=== PATIENT | male | born 1990 | race Caucasian/White ===

== ENCOUNTER 2022-06-12 07:12 | Outpatient (CLI) | payer BC, SELFPAY ==
--- NOTE | ~2022-06-12 | MR_ITS ---
EXAMINATION: MR brain/brain stem wo con DATE: 06/12/2022 08:27 INDICATION: Headache associated with sexual activity. TECHNIQUE: Magnetic resonance imaging (MRI) of the brain and brainstem was performed without intraven ous contrast. COMPARISON: None. FINDINGS: There is chronic encephalomalacia involving the anteroinferior frontal lobes. There is chromosomal disorders counselor marina encephalomalacia involving anterolateral right frontal lobe with old blood products. There is no intracranial hemorrhage, acute infarction, or abnormal intracranial mass lesion. The ventricles are n ormal in size. There is mild mucosal thickening in the paranasal sinuses. The mastoid air cells are n ormal. The orbits are normal. IMPRESSION: 1. Chronic encephalomalacia in the frontal lobes in a distribution typical of traumatic brain injury. Reviewed, dictated and finalized at location A. SCOPE REPAIRER IMPRESSION: 1. Chronic encephalomalacia in the frontal lobes in a distribution typical of t raumatic brain injury.
== END 2022-06-12 07:13 | disposition home or self-care (01) ==
LOC: ANHIMG 07:20
PROVIDERS: Visit Provider Registered Nurse
DX: G44.82 Headache associated with sexual activity (principal); G93.89 Other specified disorders of brain
CPT/HCPCS: 70551

== ENCOUNTER 2022-12-17 20:45 | Emergency (ER) | payer BC, SELFPAY ==
--- NOTE | ~2022-12-17 | XR_ITS ---
EXAMINATION: XR chest 1V portable Exam Date/Time: 12/17/2022 22:54 CDT HISTORY: dyspnea Comparison: 07/21/2017. RESULT: Lines, tubes, and devices: None. Lungs and pleura: Irregular, hazy focus of subsegmental airspace disease in the right lower lung. Bridget ngs otherwise clear. Cardiomediastinal silhouette: Stable. Other: No acute osseous or upper abdominal finding. IMPRESSION: Subsegmental right lower lung airspace disease, may represent infection in the appropriate clinical c ontext. Reviewed, dictated and finalized at location K. IMPRESSION: Subsegmental right lower lung airspace disease, may represent infection in the appropriate clinical context.
--- NOTE | 2022-12-17 20:48 | ECG_ITS ---
Measurements Intervals [place] Rate: 110 P: 66 TN: 138 QRS: 62 QRSD: 86 T: 35 QT: 287 QTc: 389 Interpretive Statements SINUS TACHYCARDIA NONSPECIFIC T-WAVE ABNORMALITY ABNORMAL ECG NO PREVIOUS ECG AVAILABLE FOR COMPARISON Electronically Signed On 12-18-2022 9:14:48 CDT by Ozzy Flores M.D.
[2022-12-17 20:53] VITALS: BP 128/86; PULSE 101; RESP 20; TEMP 36.9; O2SAT 99
[2022-12-17 22:37] VITALS: BP 126/88; PULSE 106; RESP 15; O2SAT 100
[2022-12-17] MEDS: SODIUM CHLORIDE 0.9% IV 1,000 ML 999 ML IV CONT (23:17)
[2022-12-17 23:25] LABS: Basophils Absolute Auto 0.1 K/mm3 (0.0-0.1); Basophils Percent Auto 0.8 % (0.2-1.2); Eosinophils Absolute Auto 0.2 K/mm3 (0-0.3); Eosinophils Percent Auto 1.1 % (0-4.4); Hematocrit 45.4 % (42.0-52.0); Hemoglobin 16.6 g/dL (14.0-18.0); Immature Granulocyte Absolute 0.07 K/mm3 (0.00-0.031); Immature Granulocyte Percent A 0.4 % (0-0.5); Lymphocytes Absolute Auto 3.85 K/mm3 (0.9-3.2); Lymphocytes Percent Auto 21.1 % (18.3-44.2); Mean Corpuscular HGB Conc 36.6 g/dl (32-36); Mean Corpuscular Hemoglobin 30.9 pg (26-34); Mean Corpuscular Volume 84.5 fl (80-100); Mean Platelet Volume 8.7 fl (7.4-10.4); Monocytes Absolute Auto 1.6 K/mm3 (0.1-0.6); Monocytes Percent Auto 8.5 % (2.6-8.5); Neutrophils Absolute Auto 12.4 K/mm3 (1.3-6.7); Neutrophils Percent Auto 68.1 % (45.5-73.1); Platelet Count Result 356 k/mm3 (150-375); Red Blood Count 5.37 M/mm3 (4.6-6.20); White Blood Count 18.2 K/mm3 (4.5-10.0)
[2022-12-17 23:27] LABS: Appearance Urine Clear (Clear); Bacteria Urine None Seen /hpf; Bilirubin Urine Negative (Negative); Blood Urine Negative (Negative); Color Urine Yellow (Yellow); Glucose Urine UA Negative (Negative); Ketones Urine Trace mg/dL (Negative); Leukocyte Esterase Ur Negative LEU/UL (Negative); Nitrate Urine Negative (Negative); Non Pathogenic Casts 0-2; Protein Urine Trace mg/dL (Negative); RBC Urine 0-2 /hpf (0-2); Specific Grav Ur 1.023 (1.001-1.035); Squamous Epithelial Cell Urine None seen /hpf (Few); WBC Urine 0-5 /hpf; pH Urine 6.5 (5.0-9.0)
[2022-12-17 23:34] LABS: Add Urine Microscopic? YES
[2022-12-17 23:38] LABS: Prothrombin Time 14.2 Seconds (11.1-14.7)
[2022-12-17 23:39] LABS: Alanine Aminotransferase 64 U/L (6-50); Albumin Level 4.8 g/dL (3.5-5.1); Alkaline Phosphatase 69 U/L (38-126); Anion Gap 10 mmol/L (8-16); Aspartate Amino Transferase 40 U/L (17-59); Bilirubin,Total 0.7 mg/dL (0.2-1.3); Blood Urea Nitrogen 20 mg/dL (9-20); Calcium 9.4 mg/dL (8.4-10.2); Carbon Dioxide 27 mmol/L (22-30); Chloride 103 mmol/L (98-107); Estimated CRCL calculation 94 ml/min; Estimated Glomerular Filt Rate > 60; Glucose 101 mg/dL (65-110); Lipase 51 U/L (23-300); Magnesium 1.9 mg/dL (1.6-2.3); Partial Thromboplastin Time 34.6 SECONDS (22.3-36.8); Sodium 140 mmol/L (137-145)
[2022-12-17 23:40] LABS: Lactic Acid Reflex 0.8 mmol/L (0.7-2.0)
[2022-12-17 23:49] VITALS: BP 130/86; PULSE 94; RESP 15; O2SAT 100
[2022-12-17 23:51] LABS: NT Pro B Type Natriuretic Pept < 20 pg/mL (19.9-100); Troponin I < 0.012 ng/mL (0.000-0.034)
--- NOTE | 2022-12-18 01:09 | ED.GENADULT ---
HPI - General Adult General Chief complaint: Shortness of Breath/Dyspnea Stated complaint: hx afib, high heartrate Time Seen by Provider: 12/17/22 22:01 History of Present Illness HPI narrative: Patient is a 32-year-old gentleman who presents emergency department with chief complaint of palpitations and feeling hot patient reports that symptoms started about 2 hours prior to arrival but have improved since he is arrived in the emergency department the patient reports he has had a history of A-fib before in the past and is on a DOAC currently. The patient reports that his heart rate has slowed down now and he feels as though he is in sinus rhythm now Related Data Allergies Allergy/AdvReac Type Severity Reaction Status Date / Time No Known Allergies Allergy Verified 12/17/22 23:18 Review of Systems Review of Systems: A 10 system review of systems was completed on the patient and is negative except for what is stated in the HPI. Nursing and ancillary documentation was reviewed. Exam Narrative: GENERAL: Well-appearing, well-nourished, and in no acute distress. HEAD: Normocephalic, atraumatic. EYES: PERRLA and EOMI. ENT: Nares clear, no rhinorrhea or epistaxis. Mucous membranes moist. NECK: Supple. CHEST: Clear to auscultation. No respiratory distress. HEART: Regular rate and rhythm. No murmur heard. Normal peripheral pulses. ABDOMEN: Soft, nontender, nondistended, normal active bowel sounds. EXTREMITIES: Normal range of motion. No edema. SKIN: Warm, dry, no rash. NEURO: No focal deficits. Alert and oriented x3. PSYCH: Normal mood and affect. Course Vital Signs Vital signs: Vital Signs Temperature 36.9 C 12/17/22 20:53 Pulse Rate 101 H 12/17/22 20:53 Respiratory Rate 20 12/17/22 20:53 Blood Pressure 128/86 12/17/22 20:53 Pulse Oximetry 99 12/17/22 20:53 Oxygen Delivery Room Air 12/17/22 20:53 Temperature 36.9 C 12/17/22 20:53 Pulse Rate 94 12/17/22 23:49 Respiratory Rate 15 12/17/22 23:49 Blood Pressure 130/86 12/17/22 23:49 Pulse Oximetry 100 12/17/22 23:49 Oxygen Delivery Room Air 12/17/22 20:53 Medical Decision Making MDM Narrative Medical decision making narrative: Differential diagnosis includes dysrhythmia, ACS, palpitations, electrolyte abnormality, infection Chest x-ray was interpreted by the radiologist as Subsegmental right lower lung airspace disease, may represent infection in the appropriate clinical context. Oratory studies were obtained which showed a white count of 18,000 troponin was negative BNP was negative magnesium was 1.9 potassium was 4.0 Given the patient's leukocytosis and findings for possible pneumonia and the patient has had a cough patient was started on doxycycline patient be discharged home to follow-up with his primary care provider Vital Signs Vital Signs: Vital Signs Temperature 36.9 C 12/17/22 20:53 Pulse Rate 101 H 12/17/22 20:53 Respiratory Rate 20 12/17/22 20:53 Blood Pressure 128/86 12/17/22 20:53 Pulse Oximetry 99 12/17/22 20:53 Oxygen Delivery Room Air 12/17/22 20:53 Temperature 36.9 C 12/17/22 20:53 Pulse Rate 94 12/17/22 23:49 Respiratory Rate 15 12/17/22 23:49 Blood Pressure 130/86 12/17/22 23:49 Pulse Oximetry 100 12/17/22 23:49 Oxygen Delivery Room Air 12/17/22 20:53 Lab Data 12/17/22 23:14 12/17/22 23:14 Labs: Lab Results 12/17/22 Range/Units 23:14 WBC 18.2 H (4.5-10.0) K/mm3 RBC 5.37 (4.6-6.20) M/mm3 Hgb 16.6 (14.0-18.0) g/dL Hct 45.4 (42.0-52.0) % MCV 84.5 (80-100) fl MCH 30.9 (26-34) pg MCHC 36.6 H (32-36) g/dl RDW 12.0 (11.5-14.5) % Plt Count 356 (150-375) k/mm3 MPV 8.7 (7.4-10.4) fl Immature Gran % (Auto) 0.4 (0-0.5) % Neut % (Auto) 68.1 (45.5-73.1) % Lymph % (Auto) 21.1 (18.3-44.2) % Catron % (Auto) 8.5 (2.6-8.5) % Eos % (Auto) 1.1 (0-4.4) % Baso % (Auto) 0.8
[2022-12-18] MEDS: DOXYCYCLINE HYCLATE 100 MG TABLET PO (01:52)
[2022-12-18 01:53] VITALS: BP 144/88; PULSE 90; RESP 15; O2SAT 100
== END 2022-12-18 01:54 | disposition home or self-care (01) ==
PROVIDERS: Emergency Provider Emergency Medicine; PCP Registered Nurse
DX: J18.9 Pneumonia, unspecified organism (principal); R00.2 Palpitations; D72.829 Elevated white blood cell count, unspecified
CPT/HCPCS: 36415; 71045; 80053; 81001; 83605; 83690; 83735; 83880; 84484; 85025; 85610; 85730; 93005; 96360; 96361; 99284; A9270; J7030

== ENCOUNTER 2025-03-01 17:51 | Emergency (ER) | payer OTHER, SELFPAY ==
--- NOTE | ~2025-03-01 | XR_ITS ---
EXAMINATION: XR chest 2V DATE: 03/01/2025 18:59 INDICATION: Shortness of breath. TECHNIQUE: PA and lateral views of the chest were obtained. COMPARISON: Chest radiograph dated 12/17/2022 FINDINGS: The lungs are well-expanded and clear with no focal airspace opacities, pulmonary edema, pleural effusion or pneumothorax. The cardiomediastinal silhouette is normal. Visualized bones and soft tissues are unremarkable. IMPRESSION: 1. No acute cardiopulmonary disease. Reviewed, dictated and finalized at location A.
--- OUTSIDE RECORDS SUMMARY | 2025-03-01 17:53 | XMS_ITS | Clinical Summary ---
Author Organization [facility] Address [address] [place] [address] Care Team Providers Care Plumbers And Top Helpers Name Role Phone Melani Henning EXPERIMENTAL MECHANIC ELECTRICAL-ANTHROPOLOGIST PHYSICAL Primary Care Provider Source Comments [facility],non-owned Affiliates and Associated Physician Practices is amultiple site organization consisting of ambulatory clinics and hospital sitesin [place], [place], [place] and [place]. This disclosure is being madepursuant to the Care Everywhere program and may not contain all information available regarding this patient. Last updated 18.[facility] Allergies No known active allergies Medications * Be aware that medications may not be up to date on this document. Always verify current medications with the patient. buPROPion XL 24hr (Wellbutrin-XL) 150 MG tablet 10/19/2022 Activ e fluticasone propionate (Flonase Allergy Relief) 50 MCG/ACT nasal spray [place] 2 (two) sprays into each nostril once daily 16 Each 11 10/26/2022 Active apixaban (Eliquis) 5 MG tablet TAKE 1 TABLET BY MOUTH TWICE DAILY 180 tablet 01/04/2024 Active Active Problems Problem Noted Date Diagnosed Date Primary hypertension 03/26/2022 Assessment & Plan (03/26/2022 12:11 PM CDT): BP above goal today. Patient would prefer to try lifestyle changes prior to starting medication. I recommend quitting chewing tobacco, increasing exercise activity, and avoiding caffeine. Atrial fibrillation 08/20/2019 Assessment & Plan (03/26/2022 12:07 PM CDT): Patient reports recurrent symptoms of palpitations and dyspnea that he associates with atrial fibrillation. Episodes self-terminate within minutes or hours. Patient would like to avoid taking medication if possible. EKG today shows sinus rhythm. Patient has a CHADSVASc score of 1 (hypertension). Stroke risk and anticoagulation were discussed with patient in detail. At this time, risk of bleeding on anticoagulation outweighs risk of stroke with no anticoagulation. - 30 day event monitor. - Recommend EP follow up pending monitor results to discuss ablation procedure vs antiarrhythmic medications. Assessment & Plan (01/14/2020 12:26 PM CDT): No symptomatic recurrence. Echo on 12/05/19 showed LVEF of 76%. Patient has a CHADSVASc score of 0-1 (possible HTN). Stroke risk and anticoagulation was discussed with patient in detail. At this time, risk of bleeding on anticoagulation outweighs risk of stroke with no anticoagulation. Research does not support the use of ASA for stroke prevention in atrial fibrillation patients. Patient has not been taking ASA. I have removed it from his medication list. Follow-up in one year or sooner if patient has recurrence of atrial fibrillation. Assessment & Plan (08/24/2019 9:41 AM BRANCH EXAMINER): Recent reoccurence following ER presentation, converted on his own prior to repeat DCCV, continue ASA daily. If pt does endorse reoccurrence, instructed to call office for event montior and low dose Metoprolol XL 25mg at night. Sleep study, follow up with Katherin in 3 months. Jaw pain 06/02/2014 Inadequate sleep hygiene Assessment & Plan (01/14/2020 12:23 PM CDT): Patient was previously referred to sleep medicine. He was seen by the LIQUOR STORE MANAGER in sleep medicine. He had normal PFTs on 12/05/19 and will be scheduled for a sleep study. I reinforced previous teaching that untreated sleep apnea can trigger atrial fibrillation episodes. SOB (shortness of breath) on exertion Assessment & Plan (03/26/2022 12:02 PM CDT): Associated with atrial fibrillation episodes. Resolved Problems Problem Noted Date Diagnosed Date Resolved Date Hematoma of neck 06/02/2014 10/09/2019 Leukocytosis 06/02/2014 10/09/2019 Mandible fracture 06/02/2014 10/09/2019 Immunizations Immunization Administration Dates Next Due DTaP VACCINE IM (6wk-6yrs) 02/09/1996,,1990,1990,08/05 HEP B VACCINE, ADULT 3 DOSE 04/06/1995, 5,08/19/1994 HIB-PRP-T 4 DOSE 10/05/1991,07/06/1991, 1 MMR 02/09/1996,10/05/1991 POLIO OPV 02/09/1996,01/11/1992,1990 ,1990 TD (AGE 7-ADULT) 12/03/2004 TDAP (7yrs+) 11/26/2013 Family History Medical History Relation Name Comments None Known Father unknown None Known Mother Bipolar Disorder Other uncle and his son Bipolar Disorder Sister Relation Name Status Comments Father unknown Alive Mother Alive Other uncle and his son Alive Sister Alive Social History Tobacco Use Types Packs/Day Years Used Date Smoking Tobacco: Former Cigarettes 0.5 13.4 2 12/2019 Smokeless Tobacco: Current Chew Tobacco Cessation:Ready to Q uit: Not Asked; Counseling Given: Not Answered Comments:cut back on chew 2017 Alcohol Use Standard Drinks/Week Comments Yes 0 (1 standard drink = 0.6 oz pure alcohol) couple times a year heavy drinker AUDIT-C Answer Date Recorded Frequency of Alcohol Consumption Monthly or less 10/09/2019 Average Number of Drinks 1 or 2 020 Frequency of Binge Drinking Less than monthly Overall Financial Resource Strain (CARDIA) Answe r Date Recorded Difficulty of Paying Living Expenses Not hard at all 10/09/2019 Hunger Vital Sign Answer Date Recorded Worried About Running Out of Food in the Last Ye ar Never true 10/09/2019 Ran Out of Food in the Last Year Never true 10/09/2019 PRAPARE - Transportation Answer Date Re corded Lack of Transportation (Medical) No 10/09/2019 Lack of Transportation (Non-Medical) No 10/09/2019 Education Answer Date Recorded What is the highest level of school you have completed or the highest degree you have received? High school graduate 10/09/2019 Sex and Gender Information Value Date Recorded Sex Assigned at Not on file Legal Sex Male 6:03 PM BRANCH EXAMINER Gender Identity Not on file Sexual Orientation Not on file Occupation Industry Job Start Date Job End Date former conconstruction now office-sales Not on file N ot on file Not on file Last Filed Vital Signs Vital Sign Reading Time Taken Comments Blood Pressure 130/74 03/08/2023 11:11 AM CDT Pulse 58 03/08/2023 11:11 AM CDT Temperature 37.1 C (98.7 F) 03/25/2022 3:56 PM CDT Respiratory Rate 16 08/20/2019 8:34 AM BRANCH EXAMINER Oxygen Saturation 98% 03/08/2023 11:11 AM CDT Inhaled Oxygen Concentration - - Weight 95.7 kg (211 lb) 03/08/2023 11:11 AM CDT Height 182.9 cm (6') 03/08/2023 11:11 AM CDT Body Mass Index 28.62 03/08/2023 11:11 AM CDT Plan of Treatment Health Maintenance Due Date Last Done Comments HEPATITIS C SCREENING 06/29/2008 HPV VACCINE (1 - 3-dose SCDM series) 2017 DTAP/TDAP/TD VACCINES (8 - Td or Tdap) 11/27/2023 11/26/2013, 12/03/2004, 02/09/1996, Additional history exists COVID-19 VACCINE ( season) 2024 DEPRESSION SCREENING 2024 INFLUENZA VACCINE (#1) 2025 05/19/2022 ZOSTER VACCINE (1 of 2) 2040 HIB VACCINE Completed 10/05/1991, 09/1991, 01/05/1991 HEPATITIS B VACCINE Completed 04/06/1995, 09/24/1994, 08/19/1994 HIV SCREENING Completed 08/20/2019 MENINGOCOCCAL (Group B) VACCINE SHARED DECISION-MAKING Aged Out No longer eligible based on patient's age to complete this topic MENINGOCOCCAL GROUPS A/C/Y/W VACCINE Aged Out No longer eligible based on patient's age to complete this topic PNEUMOCOCCAL VACCINE Aged Out No long er eligible based on patient's age to complete this topic Procedures Procedure Name Priority Date/Time Associated Diagnosis Comments HIV-1 HIV-2 ANTIGEN/ANTIBODY STAT 08/20/2019 12:16 AM BRANCH EXAMINER from Last 3 Months or Most Recently Relevant to Health Maintenance Results * HIV-1 HIV-2 ANTIGEN/ANTIBODY (08/20/2019 12:16 AM BRANCH EXAMINER) HIV Antigen/Antibod y 1 & 2 Non-reacti ve Non-react sammi 08/20/2019 1:49 AM BRANCH EXAMINER [facility] Comment:Neither HIV-1 p24 An tigen nor HIV-1/HIV-2 Antibodies are detected. Blood BLOOD SPECIMEN / Unknown Venipuncture / Unknown 08/20/2019 12:16 AM BRANCH EXAMINER 08/20/2019 12:21 AM BRANCH EXAMINER us Jennifer Contreras MD LAB - HEMATOLOGY ORDERABLES Fi nal Result [facility] [address] [phone] from Last 3 Months or Most Recently Relevant to Health Maintenance Insurance [facility] Care Teams Plumbers And Top Helpers Relationship Specialty Start Date End Date Melani Henning, EXPERIMENTAL MECHANIC ELECTRICAL-ANTHROPOLOGIST PHYSICAL [address] [place] [id number] PCP - General 10/26/22
--- OUTSIDE RECORDS SUMMARY | 2025-03-01 17:53 | XMS_ITS | Clinical Summary ---
Author Organization [facility] Address [address] [place] [address] Care Team Providers Care Saw Offbearer Name Role Phone Melani Henning Primary Care Provider [phone] Daniel Gonzalez MD Unavailable [phone] Allergies No known active allergies Medications indomethacin (INDOCIN) 25 MG capsule Take 1 capsule (25 mg total) by mouth 2 (two) times daily as needed. 05/21/20 23 Active ubrogepant (UBRELVY) 100 MG tabletIndication s:Migraine without aura, not intractable, without status migrainosus Take 1 tablet (100 mg total) by mouth 2 (two) times daily as needed. Max of 2 tablets (200 mg) in 24 hours 16 tablet 11 12/30/19 24 Active apixaban (ELIQUIS) 5 MG tabletIndication s:Paroxysmal atrial fibrillation (CMS/HCC HHS/HCC) Take 1 tablet (5 mg total) by mouth 2 (two) times daily. 180 tablet 1 04/11/20 24 Active topiramate (TOPAMAX) 25 MG tabletIndication s:Migraine without aura, not intractable, without status migrainosus Take 1 tablet (25 mg total) by mouth nightly at bedtime. 30 tablet 11 12/30/19 24 025 Discontinued Active Problems Problem Noted Date Diagnosed Date Vertigo 05/07/2023 Calcification of right carotid artery 01/13/2023 SOB (shortness of breath) on exertion 05/19/2022 Overview (05/19/2022): Last Assessment & Plan: Associated with atrial fibrillation episodes. Primary hypertension 03/26/2022 Overview (05/19/2022): Last Assessment & Plan: BP above goal today. Patient would prefer to try lifestyle changes prior to starting medication. I recommend quitting chewing tobacco, increasing exercise activity, and avoiding caffeine. Paroxysmal atrial fibrillation ([facility]/HCC [facility]/HCC) 08/25/2017 Overview (05/19/2022): Last Assessment & Plan: Patient reports recurrent symptoms of palpitations and [...] to discuss ablation procedure vs antiarrhythmic medications. Resolved Problems Problem Noted Date Diagnosed Date Resolved Date Jaw pain 06/02/2014 05/19/2022 Encounters Date Type Department Care Team Description 02/26/2025 12:15 PM CDT Office Visit [facility], [address] [address] Shwetha Gary APRN Chest Pain (Follow up); Atrial Fibrillation; Shortness Of Breath 02/26/2025 Travel 02/20/2025 Telephone [facility], [address] [address] Rosalba Sumner PA Concerns from Last 3 Months Immunizations Immunization Administration Dates Next Due Dtap (Acel-Immune) 02/09/1996, 2,1990,1990,1990 Fluzone 6 Months+ Quad (0.5 mL Prefilled Syringe) 05/19/2022 Hepatitis B (Generic: Adult) 04/06/1995,09/24/18 95,08/19/1994 Hib (Omni-Hib) 10/05/1991,07/06/1991,01/05/1991 MMR (MMRII) 02/09/1996,10/05/1991 Polio Opv (Generic) 02/09/1996, 2,1990,1990 Td (TDVAX) 12/03/2004 Tdap (Generic) 11/26/2013 Family History Medical History Relation Comments No Known Problems Daughter 1 No Known Problems Daughter 2 No Known Problems Mother Relation Status Comments Daughter 1 Alive Daughter 2 Alive Father Alive Maternal Grandfather Alive Maternal Grandmother Alive Mother Alive Sister Alive Social History Tobacco Use Types Packs/Day Years Used Date Smoking Tobacco: Former Cigarettes Q uit: 02/01/2022 Pipe Cigars Passive Smoke Exposure: Never Smokeless Tobacco: Former Tobacco Cessation:Counseling Given: No Comments:Quit in early 2021 Alcohol Use Standard Drinks/Week Comments Yes 0 (1 standard drink = 0.6 oz pur e alcohol) very rarely. once a month PHQ-2 Answer Date Recorded Patient Health Questionnaire-2 Score 0 12/30/2023 Sex and Gender Information Value Date Recorded Sex Assigned at Not on file Legal Sex Male 12:44 PM CDT Gender Identity Not on file Sexual Orientation Not on file Last Filed Vital Signs Vital Sign Reading Time Taken Comments Blood Pressure 124/78 02/26/2025 12:02 PM CDT Pulse 74 02/26/2025 12:02 PM CDT Temperature 36.3 C (97.4 F) 04/13/2024 7:59 AM CDT Respiratory Rate 16 06/15/2023 9:29 AM DELI SLICER Oxygen Saturation 98% 02/26/2025 12:02 PM CDT Inhaled Oxygen Concentration - - Weight 92.5 kg (204 lb) 02/26/2025 12:02 PM CDT Height 182.9 cm (6') 02/26/2025 12:02 PM CDT Body Mass Index 27.67 02/26/2025 12:02 PM CDT Plan of Treatment Upcoming Encounters Date Type Department Care Team (Late st Contact Info) Description 03/14/2025 11:[address] [facility] [address] [facility] [place] [address] Shwetha Gary, BAGGAGEMASTER [address] [facility], [facility] [address] [place] [address] 03/14/2025 12:45 PM CDT Appointment [facility] Nuclear Medicine [address] [facility] [place] [address] Shwetha Gary, BAGGAGEMASTER [address] [facility], [facility] [address] [place] [address] 03/14/2025 2:15 PM CDT Office Visit [facility], [facility] [address] [place] [address] Shwetha Gary, BAGGAGEMASTER [address] [facility], [facility] [address] [place] [address] Constantino Soares MD [facility] [address] [place] [address] 05/24/2025 11:45 AM DELI SLICER Office [facility], [facility] [address] [place] [address] Shwetha Gary, BAGGAGEMASTER [address] [facility], [facility] [address] [place] [address] Health Maintenance Due Date Last Done Comments Annual Physical 1993 HPV Vaccines (1 - 3-dose SCDM series) 2017 DTaP, Tdap and Td Vaccines (7 - Td or Tdap) 11/27/2023 11/26/2013, 12/03/2004, 02/09/1996, Additional history exists COVID-19 Vaccine ( season) 2024 PHQ-2 (Physician [place]) 2024 12/30/2023 Hepatitis B Vaccines Completed 04/06/1995, 09/24/1994, 08/19/1994 Hepatitis C Completed 05/21/2022 Meningococcal B Vaccine Aged Out No l onger eligible based on patient's age to complete this topic Meningococcal Vaccine Aged Out No saravanan katina eligible based on patient's age to complete this topic Pneumococcal Vaccine: Pediatrics (0 to 5 Years) and At-Risk Patients (6 to 49 Years) Aged Out No longer eligible based on patient's age to complete this topic RSV Immunizations Under 20 Months Aged Out No longer eligible based on patient's age to complete this topic Procedures Procedure Name Priority Date/Time Associated Diagnosis Comments ELECTROCARDIOGRAM (NON MIDMARK ACQUIRED) Routine 02/26/2025 12:09 PM CDT Paroxysmal atrial fibrillation (CMS/HCC HHS/HCC) technician terminal and repeater current use of anticoagulant therapy HEPATITIS C ANTIBODY W/RFX TO HCV RNA Routine 05/21/2022 9:18 AM DELI SLICER from Last 3 Months or Most Recently Relevant to Health Maintenance Results * ELECTROCARDIOGRAM (02/26/2025 12:09 PM CDT) 02/26/2025 12:0 9 PM CDT Narrative [facility] - 02/27/2025 5:53 AM CDT [facility] Test Date: 2025-02-26 Pat Name: ALICIA CAGLE Department: 112 Room: Gender: Male Supervisor [employer]: : 1990 Requested By: SHWETHA GARY Order Number: [id number] Reading MD: Alicia Jade Measurements Intervals Griffith Rate: 77 P: 67 MI: 135 QRS: 71 QRSD: 91 T: 34 QT: 368 QTc: 419 Interpretive Statements SINUS RHYTHM WITH SINUS ARRHYTHMIA NONSPECIFIC T-WAVE ABNORMALITY Procedure Note Alicia Jade MD - 02/27/2025 [facility] Test Date: 2025-02-26 Pat Name: ALICIA CAGLE Department: 112 Room: Gender: Male Supervisor [employer]: : 1990 Requested By: SHWETHA GARY Order Number: [id number] Reading MD: Alicia Jade Measurements Intervals Griffith Rate: 77 P: 67 MI: 135 QRS: 71 QRSD: 91 T: 34 QT: 368 QTc: 419 Interpretive Statements SINUS RHYTHM WITH SINUS ARRHYTHMIA NONSPECIFIC T-WAVE ABNORMALITY us Shwetha Gary BAGGAGEMASTER PROCEDURES-ORDERABLE NO C HARGE Final Result [facility] * HEPATITIS C ANTIBODY W/RFX TO HCV RNA (05/21/2022 9:18 AM DELI SLICER) HEPATITIS C AB NON-REACT JOANIE NON-REACT JOANIE [facility] SIGNAL TO CUTOFF 0.03 <1.00 [facility] Comment: HCV antibody was non-reactive. There is no laboratory evidence of HCV infection. In most cases, no further action is required. However, if recent HCV exposure is suspected, a test for HCV RNA (test code 90959) is suggested. For additional information please refer to http://education.THE Football App/faq/ZAE95q7 (This link is being provided for informational/ educational purposes only.) 05/21/2022 9:18 AM DELI SLICER 05/21/2022 9:22 AM DELI SLICER Narrative [facility] - 05/24/2022 4:48 PM DELI SLICER FASTING:NO FASTING: NO Resulting Agency Comment Performing Organization Information: Site ID: [place] Name: [facility] Address: [address] [place] [address] Director: Caleb Payne D.O., MPH us Melani [facility] Final Resul t [facility] [id number] [facility] [address], from Last 3 Months or Most Recently Relevant to Health Maintenance Insurance [employer] Care Teams Saw Offbearer Relationship Specialty Start Date End Date Melani Henning APNP [address] [place] [address] PCP - General NURSE PRACTITIONER 05/19/22 Daniel Gonzalez MD [address] [place] [id number] Physician NEUROMUSCULOSKELETAL MEDICINE 01/02/24
--- OUTSIDE RECORDS SUMMARY | 2025-03-01 17:53 | XMS_ITS | Encounter Summary ---
Author Organization [facility] Address [facility] [place] [address] Care Team Providers Care Rn Telephone Triage Name Role Phone Melani Henning Primary Care Provider [phone] Daniel Gonzalez MD Unavailable [phone] Encounter Details Date Type Department Care Team (Late st Contact Info) Description 10/07/2022 Localize Directt Message Enc [facility] Family & Internal Medicine [facility] [address] [place] [address] Melani Henning APNP [address] [place] [address] Question regarding MRI GENERIC Social History Tobacco Use Types Packs/Day Years Used Date Smoking Tobacco: Former Cigarettes Q uit: 02/01/2022 Pipe Cigars Smokeless Tobacco: Former Comments:Quit in early 2021 Alcohol Use Standard Drinks/Week Comments Yes 0 (1 standard drink = 0.6 oz pur e alcohol) very rarely. once a month PHQ-2 Answer Date Recorded Patient Health Questionnaire-2 Score 0 10/07/2022 Sex and Gender Information Value Date Recorded Sex Assigned at Not on file Legal Sex Male 12:44 PM CDT Gender Identity Not on file Sexual Orientation Not on file COVID-19 Exposure Response Date Recorded In the last 10 days, have yo u been in contact with someone who was confirmed or suspected to have Coronavirus/COVID-19? No / Unsure 10/07/2022 10:36 AM CDT documented as of this encounter Functional Status * Over the past 2 weeks, how often have you been bothered by any of the following problems? Question Answer Date of Assessment Author Status Little interest or pleasure in doing things Not at all 10/07/2022 11:13 AM CDT Savana King, RN Acti ve Feeling down, depressed, or hopeless Not at all 10/07/2022 11:13 AM CDT Savana King RN Active Patient Health Questionnaire-2 Score 0 10/07/2022 11:13 AM CDT Savana King R N Active documented as of this encounter Plan of Treatment Upcoming Encounters Date Type Department Care Team (Late st Contact Info) Description 03/14/2025 11:00 AM CDT Appointment [facility] Non Invasive Cardiology [facility] [place] [address] Keturah Gary, JERSEY KNITTER 3 [facility] [address] [place] [address] 03/14/2025 12:45 PM CDT Appointment [facility] Nuclear Medicine [facility] [place] [address] Keturah Gary, JERSEY KNITTER 3 [facility] [address] [place] [address] 03/14/2025 2:15 PM CDT [facility] [address] [place] [address] Keturah Gary, JERSEY KNITTER 3 [facility], [facility] [address] [place], [place] [address] Constantino Soares MD [facility], [address] [place] [address] 05/24/2025 11:45 AM ELECTRICIAN Office Visit [facility], [address] [address] Keturah Gary APRN [address] [address] documented as of this encounter Visit Diagnoses Not on filedocumented in this encounter Additional Health Concerns Assessment Noted Time PHQ-9 Depression Total Score: 7 05/19/20 22 9:22 AM ELECTRICIAN documented as of this encounter Care Teams Rn Telephone Triage Relationship Specialty Start Date End Date Melani Henning APNP [address] [place] [address] PCP - General NURSE PRACTITIONER 05/19/22 Daniel Gonzalez MD [address] [place] [address] Physician NEUROMUSCULOSKELETAL MEDICINE 01/02/24 documented as of this encounter
--- OUTSIDE RECORDS SUMMARY | 2025-03-01 17:53 | XMS_ITS | Encounter Summary ---
Author Organization [facility] Address [facility] [place] [address] Care Team Providers Care Office Asst Name Role Phone Melani Henning Primary Care Provider [phone] Daniel Gonzalez MD Unavailable [phone] Encounter Details Date Type Department Care Team (Late st Contact Info) Description 11/25/2022 MyChart Message Enc [facility] Family & Internal Medicine [facility] [address] [place] [address] Melani Henning APNP [address] [place], [place] [id number] Back pain Social History Tobacco Use Types Packs/Day Years [...] suspected to have Coronavirus/COVID-19? No / Unsure 11/12/2022 8:58 AM CDT documented as of this encounter Plan of Treatment Upcoming Encounters Date Type Department Care Team (Late Contact Info) Description 03/14/2025 11:00 AM CDT Appointment [facility] Non Invasive Cardiology [facility] [place] [address] Keturah Gary, SURVEY RESEARCH PROFESSOR 3 [facility] [address] [place] [address] 03/14/2025 12:45 PM CDT Appointment [facility] Nuclear Medicine [facility] [place] [address] Keturah Gary, SURVEY RESEARCH PROFESSOR 3 [facility], [facility] [address] [place], [place] [address] 03/14/2025 2:15 PM CDT Office Visit [facility], [facility] [address] [place] [address] Keturah Gary, SURVEY RESEARCH PROFESSOR 3 [facility], [facility] [address] [place], [place] [address] Constantino Soares MD [facility] [address] [place] [address] 05/24/2025 11:45 AM SHIPPING INSPECTOR Office [facility] [address] [place] [address] Keturah Gary, SURVEY RESEARCH PROFESSOR 3 [facility], [facility] [address] [place], [place] [address] documented as of this encounter Visit Diagnoses Not on filedocumented in this encounter Additional Health Concerns Assessment Noted Time PHQ-9 Depression Total Score: 7 05/19/20 22 9:22 AM SHIPPING INSPECTOR documented as of this encounter Care Teams Office Asst Relationship Specialty Start Date End Date Melani Henning APNP [address] [place] [address] PCP - General NURSE PRACTITIONER 05/19/22 Daniel Gonzalez MD [address] [place] [address] Physician NEUROMUSCULOSKELETAL MEDICINE 01/02/24 documented as of this encounter
[2025-03-01 18:29] VITALS: BP 136/97; PULSE 103; RESP 20; TEMP 36.7; O2SAT 99
--- NOTE | 2025-03-01 18:34 | ECG_ITS ---
Test Date: 2025-03-01 21:04:30 Measurements Intervals [place] Rate: 82 P: 65 UT: 137 QRS: 56 QRSD: 91 T: 28 QT: 340 QTc: 398 Interpretive Statements SINUS RHYTHM WITH MARKED SINUS ARRHYTHMIA NONSPECIFIC T-WAVE ABNORMALITY- INFERIOR LEADS BORDERLINE ECG No previous ECG available for comparison Electronically Signed On 03-02-2025 08:23:21 CDT by Orlando Spivey D.O.
[2025-03-01 21:31] LABS: Hematocrit 44.1 % (42.0-52.0); Hemoglobin 15.6 g/dL (14.0-18.0); Immature Granulocyte Percent A 0.3 % (0-0.5); Lymphocytes Absolute Auto 3.52 K/mm3 (0.9-3.2); Mean Corpuscular HGB Conc 35.4 g/dl (32-36); Mean Corpuscular Hemoglobin 29.9 pg (26-34); Mean Corpuscular Volume 84.5 fl (80-100); Nucleated Red Blood Cells Absolute Auto 0.000 K/mm3 (0.0-0.012); Nucleated Red Blood Cells Perc 0.0 % (0.0-0.2); Platelet Count Result 338 k/mm3 (150-375); Red Blood Count 5.22 M/mm3 (4.6-6.20); White Blood Count 14.1 K/mm3 (4.5-10.0)
[2025-03-01 21:41] LABS: Alanine Aminotransferase 59 U/L (6-50); Albumin Level 5.0 g/dL (3.5-5.1); Alkaline Phosphatase 62 U/L (38-126); Anion Gap 14 mmol/L (4-12); Aspartate Amino Transferase 45 U/L (17-59); Bilirubin,Total 0.6 mg/dL (0.2-1.3); Blood Urea Nitrogen 19 mg/dL (9-20); Calcium 9.7 mg/dL (8.4-10.2); Carbon Dioxide 22 mmol/L (22-30); Chloride 101 mmol/L (98-107); Estimated CRCL calculation 100 ml/min; Estimated Glomerular Filt Rate > 60; Glucose 148 mg/dL (65-110); Lipase 56 U/L (23-300); Potassium 3.7 mmol/L (3.4-5.0); Sodium 137 mmol/L (137-145); Total Protein 8.4 g/dL (6.3-8.2)
[2025-03-01 21:52] LABS: Troponin I < 0.012 ng/mL (0.000-0.034)
[2025-03-01 21:59] LABS: INR 1.0; Prothrombin Time 13.4 Seconds (11.1-14.7)
[2025-03-01 22:00] LABS: Partial Thromboplastin Time 32.1 Seconds (22.3-36.8)
[2025-03-01 22:34] VITALS: BP 137/84; PULSE 78; RESP 18; O2SAT 98
--- NOTE | 2025-03-01 23:02 | ECG_ITS ---
Test Date: 2025-03-01 23:03:20 Measurements Intervals [place] Rate: 83 P: 60 [place]: 143 QRS: 59 QRSD: 96 T: 35 QT: 355 QTc: 419 Interpretive Statements SINUS RHYTHM BASELINE ARTIFACT- I, II NORMAL ECG Compared to ECG 03/01/2025 21:04:30 Sinus arrhythmia no longer present Electronically Signed On 03-02-2025 08:17:50 CDT by Orlando Spivey D.O.
[2025-03-01 23:31] LABS: Magnesium 2.3 mg/dL (1.6-2.3)
[2025-03-01 23:43] LABS: Troponin I < 0.012 ng/mL (0.000-0.034)
--- OUTSIDE RECORDS SUMMARY | 2025-03-01 23:44 | XMS_ITS | Encounter Summary ---
Author Organization [facility] Address [facility] [place] [address] Care Team Providers Care Fitting Room Inspector Name Role Phone Melani Henning Primary Care Provider [phone] Daniel Gonzalez MD Unavailable [phone] Encounter Details Date Type Department Care Team (Late st Contact Info) Description 10/07/2022 Traffic Labst Message Enc [facility] Family & Internal Medicine [facility] [address] [place] [address] Melani Henning APNP [address] [place] [address] Question regarding MRI GENERIC Social [...] Not at all 10/07/2022 11:13 AM CDT Saavna King RN Active Patient Health Questionnaire-2 Score 0 10/07/2022 11:13 AM CDT Savana King R N Active documented as of this encounter Plan of Treatment Upcoming Encounters Date Type Department Care Team (Late st Contact Info) Description 03/14/2025 11:00 AM CDT Appointment [facility] Non Invasive Cardiology [facility] [place] [address] Keturah Gary, CLOTH PACKER 3 [facility], [facility] [address] [place] [address] 03/14/2025 12:45 PM CDT Appointment [facility] Nuclear Medicine [facility] [place] [address] Keturah Gary, CLOTH PACKER 3 [facility], [facility] [address] [place] [address] 03/14/2025 2:15 PM CDT [facility], [facility] [address] [place] [address] Keturah Gary, CLOTH PACKER 3 [facility], [facility] [address] [place], [place] [address] Constantino Soares MD [facility], [address] [place] [address] 05/24/2025 11:45 AM PARKING RAMP ATTENDANT Office Visit [facility], [address] [address] Keturah Gary APRN [address] [address] documented as of this encounter Visit Diagnoses Not on filedocumented in this encounter Additional Health Concerns Assessment Noted Time PHQ-9 Depression Total Score: 7 05/19/20 22 9:22 AM PARKING RAMP ATTENDANT documented as of this encounter Care Teams Fitting Room Inspector Relationship Specialty Start Date End Date Melani Henning APNP [address] [place] [address] PCP - General NURSE PRACTITIONER 05/19/22 Daniel Gonzalez MD [address] [place] [address] Physician NEUROMUSCULOSKELETAL MEDICINE 01/02/24 documented as of this encounter
--- OUTSIDE RECORDS SUMMARY | 2025-03-01 23:44 | XMS_ITS | Encounter Summary ---
Author Organization [facility] Address [facility] [place] [address] Care Team Providers Care Technology Consultant Name Role Phone Melani Henning Primary Care Provider [phone] Daniel Gonzalez MD Unavailable [phone] Encounter Details Date Type Department Care Team (Late st Contact Info) Description 11/25/2022 MyChart Message Enc [facility] Medical Group Family & Internal Medicine [facility] [address] [place] [address] Melani Henning APNP [address] [place], [place] [phone] Back pain Social History Tobacco Use Types [...] Info) Description 03/14/2025 11:00 AM CDT Appointment [facility] Non Invasive Cardiology [facility] [place] [address] Keturah Gary, MANAGER FOOD 3 [facility], [facility] [address] [place] [address] 03/14/2025 12:45 PM CDT Appointment [facility] Nuclear Medicine [facility] [place] [address] Keturah Gary, MANAGER FOOD 3 [facility], [facility] [address] [place], [place] [address] 03/14/2025 2:15 PM CDT Office Visit [facility], [facility] [address] [place] [address] Keturah Gary, MANAGER FOOD 3 [facility], [facility] [address] [place], [place] [address] Constantino Soares MD Three [facility]., [address] [place] [address] 05/24/2025 11:45 AM OPHTHALMIC LENS INSPECTOR Office Visit [facility], [facility] [address] [place] [address] Keturah Gary, MANAGER FOOD 3 [facility], [facility] [address] [place], [place] [address] documented as of this encounter Visit Diagnoses Not on filedocumented in this encounter Additional Health Concerns Assessment Noted Time PHQ-9 Depression Total Score: 7 05/19/20 22 9:22 AM OPHTHALMIC LENS INSPECTOR documented as of this encounter Care Teams Technology Consultant Relationship Specialty Start Date End Date Melani Henning APNP [address] [place] [address] PCP - General NURSE PRACTITIONER 05/19/22 Daniel Gonzalez MD [address] [place] [address] Physician NEUROMUSCULOSKELETAL MEDICINE 01/02/24 documented as of this encounter
--- OUTSIDE RECORDS SUMMARY | 2025-03-01 23:44 | XMS_ITS | Clinical Summary ---
Author Organization [facility] [address] Address [address] [place] [address] Care Team Providers Care Student Records Specialist Name Role Phone Daniel Gonzalez MD Primary Care Provider [phone] Allergies No known active allergies Medications aspirin 325 mg tablet Take 1 tablet (325 mg total) by mouth daily Active Active Problems Problem Noted Date Diagnosed Date Sensorineural hearing loss (SNHL) of both ears 1 07/07/2022 Vertigo 05/07/2023 Paroxysmal atrial fibrillation 08/25/2017 Medical History Medical History Date Comments Cardiac rhythm disturbance Family History Medical History Relation Name Comments No Known Problems Father No Known Problems Mother Hyperlipidemia Mother's Brother No Known Problems Sister Relation Name Status Comments Father Alive Mother Alive Mother's Brother Sister Alive Social History Tobacco Use Types Packs/Day Years Used Date Smoking Tobacco: Every Day Cigarettes 0.5 10 Smokeless Tobacco: Never Alcohol Use Standard Drinks/Week Comments No 0 (1 standard drink = 0.6 oz pur e alcohol) Personal Safety Answer Date Recorded Getting School Help Needed Not on file 06/30 Sex and Gender Information Value Date Recorded Sex Assigned at Not on file Legal Sex Male 2:00 PM DEVELOPMENTAL WRITING INSTRUCTOR Gender Identity Not on file Sexual Orientation Not on file Obstetrics History Last Filed Vital Signs Vital Sign Reading Time Taken Comments Blood Pressure 118/68 08/25/2017 8:02 AM DEVELOPMENTAL WRITING INSTRUCTOR Pulse 78 08/25/2017 8:02 AM DEVELOPMENTAL WRITING INSTRUCTOR Temperature - - Respiratory Rate - - Oxygen Saturation 97% 08/25/2017 8:02 AM DEVELOPMENTAL WRITING INSTRUCTOR Inhaled Oxygen Concentration - - Weight 96.6 kg (213 lb) 04/15/2023 1:53 PM CDT Height 182.9 cm (6') 08/25/2017 8:02 AM DEVELOPMENTAL WRITING INSTRUCTOR Body Mass Index 28.89 08/25/2017 8:02 AM DEVELOPMENTAL WRITING INSTRUCTOR Plan of Treatment Health Maintenance Due Date Last Done Comments Depression Screening 1990 Hepatitis C Screening 1990 Varicella Vaccines (1 of 2 - 13+ 2-dose series) 2003 Regular Well Visit/Exam 18-64 2008 Pneumococcal vaccine <65 (1 of 2 - PCV) 2009 HPV Vaccines (1 - 3-dose SCD M series) 2017 DTaP/Tdap/Td Vaccine (7 - Td or Tdap) 11/27/2023 11/26/2013, 12/03/2004, 02/09/1996, Additional history exists Influenza Vaccine (#1) 2025 05/19/2022 Hepatitis B Screening Completed 04/06/1995 , 09/24/1994, 08/19/1994 Insurance [facility] Address: [facility] [address] [place] [address] Care Teams Student Records Specialist Relationship Specialty Start Date End Date Daniel Gonzalez MD [address] [place], [place] [id number] PCP - General Neurology 12/06/22
--- OUTSIDE RECORDS SUMMARY | 2025-03-01 23:44 | XMS_ITS | Clinical Summary ---
Author Organization [facility] Address [address] [place] [address] Care Team Providers Care Business Division Chair Name Role Phone Melani Henning Primary Care Provider [phone] Daniel Gonzalez MD Unavailable [phone] Allergies No known active allergies Medications indomethacin [...] activity, and avoiding caffeine. Paroxysmal atrial fibrillation ([facility]/HCC [facility]/HCC) 08/25/2017 Overview (05/19/2022): Last Assessment & Plan: [...] 02/26/2025 12:15 PM CDT Office Visit [facility], [address] [address] Shwetha Gary APRN Chest Pain (Follow up); Atrial Fibrillation; Shortness Of Breath 02/26/2025 Travel 02/20/2025 Telephone [facility], [address] [address] Rosalba Sumner PA Concerns from Last 3 [...] CDT Respiratory Rate 16 06/15/2023 9:29 AM ORDER EDITOR Oxygen Saturation 98% 02/26/2025 12:02 PM CDT [...] [facility] Non Invasive Cardiology [address] [facility] [place] [address] Shwetha Gary, BASEBALL GLOVE STUFFER 3 [facility], [facility] [address] [place] [address] 03/14/2025 12:45 PM CDT Appointment [facility] Nuclear Medicine [facility] [place] [address] Shwetha Gary, BASEBALL GLOVE STUFFER 3 [facility], [facility] [address] [place] [address] 03/14/2025 2:15 PM CDT Office Visit [facility], [facility] [address] [place] [address] Shwetha Gary, BASEBALL GLOVE STUFFER 3 [facility], [facility] [address] [place] [address] Constantino Soares MD Three [facility] [address] [place] [address] 05/24/2025 11:45 AM ORDER EDITOR Office [facility], [facility] [address] [place] [address] Shwetha Gary, BASEBALL GLOVE STUFFER 3 [facility], [facility] [address] [place] [address] Health Maintenance Due Date Last Done Comments Annual Physical 1993 HPV Vaccines (1 - 3-dose SCDM series) 2017 DTaP, Tdap and Td Vaccines (7 - Td or Tdap) 11/27/2023 11/26/2013, 12/03/2004, 02/09/1996, Additional history exists COVID-19 Vaccine ( season) 2024 PHQ-2 (Physician Citizen [place]) 2024 12/30/2023 Hepatitis B Vaccines Completed 04/06/1995, [...] PM CDT Paroxysmal atrial fibrillation (CMS/HCC HHS/HCC) rodent exterminator current use of anticoagulant therapy HEPATITIS C ANTIBODY W/RFX TO HCV RNA Routine 05/21/2022 9:18 AM ORDER EDITOR from Last 3 Months or Most Recently Relevant to Health Maintenance Results * ELECTROCARDIOGRAM (02/26/2025 12:09 PM CDT) 02/26/2025 12:0 9 PM CDT Narrative [facility] - 02/27/2025 5:53 AM CDT [facility] Test Date: 2025-02-26 Pat Name: ALICIA CAGLE Department: 112 Room: Gender: Male Audit Spec: : 1990 Requested By: SHWETHA GARY Order Number: [id number] Reading MD: Alicia Jade Measurements Intervals [place] Rate: 77 P: 67 AK: 135 QRS: 71 QRSD: 91 T: 34 QT: 368 QTc: 419 Interpretive Statements SINUS RHYTHM WITH SINUS ARRHYTHMIA NONSPECIFIC T-WAVE ABNORMALITY Procedure Note Alicia Jade MD - 02/27/2025 [facility] Test Date: 2025-02-26 Pat Name: ALICIA CAGLE Department: 112 Room: Gender: Male Audit Spec: : 1990 Requested By: SHWETHA GARY Order Number: [id number] Reading MD: Alicia Jade Measurements Intervals [place] Rate: 77 P: 67 AK: 135 QRS: 71 QRSD: 91 T: 34 QT: 368 QTc: 419 Interpretive Statements SINUS RHYTHM WITH SINUS ARRHYTHMIA NONSPECIFIC T-WAVE ABNORMALITY us Shwetha Gary BASEBALL GLOVE STUFFER PROCEDURES-ORDERABLE NO C HARGE Final Result [facility] * HEPATITIS C ANTIBODY W/RFX TO HCV RNA (05/21/2022 9:18 AM ORDER EDITOR) HEPATITIS C AB NON-REACT JOANIE NON-REACT JOANIE [facility] SIGNAL TO CUTOFF 0.03 <1.00 [facility] Comment: HCV antibody was non-reactive. There is no laboratory evidence of HCV infection. In most cases, no further action is required. However, if recent HCV exposure is suspected, a test for HCV RNA (test code 29334) is suggested. For additional information please refer to http://education.V[employer]ogen/faq/GIS58m8 (This link is being provided for informational/ educational purposes only.) 05/21/2022 9:18 AM ORDER EDITOR 05/21/2022 9:22 AM ORDER EDITOR Narrative [facility] - 05/24/2022 4:48 PM ORDER EDITOR FASTING:NO FASTING: NO Resulting Agency Comment Performing Organization Information: Site ID: [place] Name: [facility] Address: [address] [place] [address] Director: Caleb Payne D.O., MPH us Melani [facility] Final Resul t [facility] [address] [place] [address], from Last 3 Months or Most Recently Relevant to Health Maintenance Insurance CIG Care Teams Business Division Chair Relationship Specialty Start Date End Date Melani Henning APNP [address] [place] [address] PCP - General NURSE PRACTITIONER 05/19/22 Daniel Gonzalez MD [address] [place] [address] Physician NEUROMUSCULOSKELETAL MEDICINE 01/02/24
--- OUTSIDE RECORDS SUMMARY | 2025-03-01 23:44 | XMS_ITS | Clinical Summary ---
Author Organization [facility] Address [address] [place] [address] Care Team Providers Care Manager Life Insurance Name Role Phone Melani Henning SERVICE MANAGER-MAINTENANCE ADVISOR Primary Care Provider Source Comments [facility],non-owned Affiliates and Associated Physician Practices is amultiple site organization consisting of ambulatory clinics and hospital sitesin [place], [place], [place] and [place]. This disclosure is being madepursuant to the Care Everywhere program and may not contain all information available regarding this patient. Last updated 18.[facility] Allergies No known active allergies Medications * Be aware that medications may not be up to date on this document. Always verify current medications with the patient. buPROPion XL 24hr (Wellbutrin-XL) 150 MG tablet 10/19/2022 Activ e fluticasone propionate (Flonase Allergy Relief) 50 MCG/ACT nasal spray [place] 2 (two) sprays into each nostril once [...] fibrillation. Assessment & Plan (08/24/2019 9:41 AM MILLWRIGHT APPRENTICE): Recent reoccurence following ER presentation, converted on [...] sleep medicine. He was seen by the [employer] in sleep medicine. He had normal PFTs [...] on file Legal Sex Male 6:03 PM MILLWRIGHT APPRENTICE Gender Identity Not on file Sexual Orientation [...] CDT Respiratory Rate 16 08/20/2019 8:34 AM MILLWRIGHT APPRENTICE Oxygen Saturation 98% 03/08/2023 11:11 AM CDT [...] HIV-1 HIV-2 ANTIGEN/ANTIBODY STAT 08/20/2019 12:16 AM MILLWRIGHT APPRENTICE from Last 3 Months or Most Recently Relevant to Health Maintenance Results * HIV-1 HIV-2 ANTIGEN/ANTIBODY (08/20/2019 12:16 AM MILLWRIGHT APPRENTICE) HIV Antigen/Antibod y 1 & 2 Non-reacti ve Non-react sammi 08/20/2019 1:49 AM MILLWRIGHT APPRENTICE [facility] Comment:Neither HIV-1 p24 An tigen nor HIV-1/HIV-2 Antibodies are detected. Blood BLOOD SPECIMEN / Unknown Venipuncture / Unknown 08/20/2019 12:16 AM MILLWRIGHT APPRENTICE 08/20/2019 12:21 AM MILLWRIGHT APPRENTICE us Jennifer Contreras MD LAB - HEMATOLOGY ORDERABLES Fi nal Result [facility] [address] [phone] from Last 3 Months or Most Recently Relevant to Health Maintenance Insurance [facility] Care Teams Manager Life Insurance Relationship Specialty Start Date End Date Melani Henning, SERVICE MANAGER-MAINTENANCE ADVISOR [address] [place] [address] PCP - General 10/26/22
--- NOTE | 2025-03-01 23:49 | ED.SOB ---
HPI - SOB/Dyspnea General Chief Complaint: Shortness of Breath/Dyspnea Stated Complaint: SOB Time Seen by Provider: 03/01/25 23:02 Source: patient Mode of arrival: ambulatory Limitations: no limitations History of Present Illness HPI Narrative: This is a 34-year-old male that presents to the emergency department for episode of palpitations prior to arrival. Reports shortness of breath, nausea and vomiting. These symptoms resolved without intervention. No symptoms currently. Related Data Allergies Allergy/AdvReac Type Severity Reaction Status Date / Time No Known Allergies Allergy Verified 03/01/25 23:02 Review of Systems Review of Systems: All systems reviewed & are unremarkable except as noted in HPI and below PMFSH Past Medical History Medical History (Updated 03/01/25 @ 23:55 by Jolanta Abdi PA-C) Atrial fibrillation Exam Narrative: GENERAL: Well-appearing, well-nourished, and in no acute distress. HEAD: Normocephalic, atraumatic. EYES: EOMI. CHEST: Clear to auscultation. No respiratory distress. No wheezes rales or rhonchi HEART: Regular rate and rhythm. No murmur heard. Normal peripheral pulses. EXTREMITIES: Normal range of motion. No edema. SKIN: Warm, dry, no rash. NEURO: No focal deficits. Alert and oriented x3. PSYCH: Normal mood and affect Course Vital Signs Vital signs: Vital Signs Temperature 98.0 F 03/01/25 18:29 Pulse Rate 103 H 03/01/25 18:29 Respiratory Rate 20 03/01/25 18:29 Blood Pressure 136/97 H 03/01/25 18:29 Pulse Oximetry 99 03/01/25 18:29 Oxygen Delivery Room Air 03/01/25 18:29 Temperature 98.0 F 03/01/25 18:29 Pulse Rate 78 03/01/25 22:34 Respiratory Rate 18 03/01/25 22:34 Blood Pressure 137/84 03/01/25 22:34 Pulse Oximetry 98 03/01/25 22:34 Oxygen Delivery Room Air 03/01/25 23:10 MDM - SOB/Dyspnea MDM Narrative Medical decision making narrative: Patient presents to the emergency department for an episode of palpitations prior to arrival. Reports history of atrial fibrillation. Symptoms had resolved without intervention, upon my evaluation patient is resting comfortably and asymptomatic. Mildly tachycardic upon arrival, this normalized without intervention. Patient is afebrile and nontoxic appearing. CBC with mild leukocytosis to 14.1. Metabolic panel without concerning findings. EKG without acute ST changes, his baseline and 3 hour troponins are negative. D-dimer is not elevated. Chest x-ray without acute cardiopulmonary abnormality. Patient updated on his workup and agrees with plan of care. Instructed to have further follow-up with polymerization engineer. He was given warnings to return to the ER Differential Diagnosis Differential diagnosis: Likely pulmonary embolism and other (Arrhythmia) Lab Data Attestation: I reviewed the patient's lab results. 03/01/25 21:10 03/01/25 21:10 Labs: Lab Results 03/01/25 03/01/25 Range/Units 21:10 23:00 WBC 14.1 H (4.5-10.0) K/mm3 RBC 5.22 (4.6-6.20) M/mm3 Hgb 15.6 (14.0-18.0) g/dL Hct 44.1 (42.0-52.0) % MCV 84.5 (80-100) fl MCH 29.9 (26-34) pg MCHC 35.4 (32-36) g/dl RDW 12.1 (11.5-14.5) % Plt Count 338 (150-375) k/mm3 MPV 8.6 (7.4-10.4) fl Immature Gran % (Auto) 0.3 (0-0.5) % Neut % (Auto) 66.7 (45.5-73.1) % Lymph % (Auto) 25.0 (18.3-44.2) % [place] % (Auto) 5.5 (2.6-8.5) % Eos % (Auto) 1.8 (0-4.4) % Baso % (Auto) 0.7 (0.2-1.2) % Lymph # (Auto) 3.52 H (0.9-3.2) K/mm3 [place] # (Auto) 0.8 H (0.1-0.6) K/mm3 Eos # (Auto) 0.3 (0-0.3) K/mm3 Baso # (Auto) 0.1 (0.0-0.1) K/mm3 Abs Immat Gran (auto) 0.04 H (0.00-0.031) K/mm3 Absolute Neuts (auto) 9.4 H (1.3-6.7) K/mm3 Absolute Nucleated RBC 0.000 (0.0-0.012) K/mm3 Nucleated RBC % 0.0 (0.0-0.2) % PT 13.4 (11.1-14.7) Seconds INR 1.0 APTT 32.1 (22.3-36.8) Seconds D-Dimer < 0.27 (<0.48) ug/mL Sodium 137 (137-145) mmol/L Potassium 3.7 (3.4-5.0) mmol/L Chloride 101 (98-107) mmol/L Carbon Dioxide 22 (22-30) mmol/L Anion Gap 14 H (4-12) mmol/L BUN 19 (9-20) mg/dL Creatinine 1.01 (0.7-1.3) mg/dL Estim Creat Clear Calc 100 ml/min Estimated GFR > 60 (59 - ) Glucose 148 H (65-110) mg/dL Calcium 9.7 (8.4-10.2) mg/dL Magnesium 2.3 (1.6-2.3) mg/dL Total Bilirubin 0.6 (0.2-1.3) mg/dL AST 45 (17-59) U/L ALT 59 H (6-50) U/L Alkaline Phosphatase 62 (38-126) U/L Troponin I < 0.012 < 0.012 (0.000-0.034) ng/mL Total Protein 8.4 H (6.3-8.2) g/dL Albumin 5.0 (3.5-5.1) g/dL Lipase 56 (23-300) U/L Imaging Data Radiologist's impression: ITS Impressions Chest X-Ray 03/01/25 19:30 IMPRESSION: 1. No acute cardiopulmonary disease. ECG Data EKG #1: ECG completion date: 03/01/25 EKG Interpretation: normal rate, sinus rhythm, no ST changes and normal QT Critical Care Time Critical Care Time Critical Care Time: No Discharge Plan Discharge Clinical Impression: Shortness of breath, Palpitations Patient Disposition: Home Condition: Improved Instructions: Heart Palpitations (ED) Additional Instructions: Return to the emergency department if you experience fever, chest pain, shortness of breath, you pass out, or any other symptoms that are concerning to you. Your blood work, EKG and imaging today are re-assuring Follow up with your polymerization engineer Patient Language: Irish Prescriptions: No Action doxycycline hyclate 100 mg tablet 100 mg PO BID Qty: 14 0RF Follow-up/Referrals: Milady,IAN Polo [Primary Care Provider]
== END 2025-03-02 00:12 | disposition home or self-care (01) ==
PROVIDERS: Emergency Medicine; Emergency Provider Physician Assistant; PCP Registered Nurse
DX: R00.2 Palpitations (principal); R06.02 Shortness of breath; I48.91 Unspecified atrial fibrillation; Z79.01 Long term (current) use of anticoagulants
CPT/HCPCS: 36415; 71046; 80053; 83690; 83735; 84484; 85025; 85380; 85610; 85730; 93005; 99284